=== PATIENT | female | born 2000 | race Two or more races ===

== ENCOUNTER 2021-10-20 14:24 | Emergency (ER) | payer OTHER ==
[2021-10-20 14:52] VITALS: BMI 29.2
[2021-10-20] MEDS ORDERED: LACTATED RINGERS SOLUTION 1000 ML INFUS.BAG IV ONE (15:12)
[2021-10-20 15:47] LABS: EPI CELLS 17 /uL (0-25.1); HYALINE CASTS 0 /uL (0-3.1); URINE APPEARANCE CLEAR; URINE BACTERIA 114 /uL (0-1359); URINE BILIRUBIN NEGATIVE (NEGATIVE); URINE COLOR YELLOW; URINE GLUCOSE (UA) NEGATIVE (NEGATIVE); URINE KETONE NEGATIVE (NEGATIVE); URINE LEUK ESTERASE NEGATIVE (NEGATIVE); URINE NITRITE NEGATIVE (NEGATIVE); URINE PROTEIN NEGATIVE (NEGATIVE); URINE RBC 7 /uL (0-23.9); URINE UROBILINOGEN 0.2 mg/dL (0.2-1.0); URINE WBC 12 /uL (0-25.8)
[2021-10-20 16:16] LABS: BASO % 0.4 % (0-2.0); CHLORIDE 104 mmol/L (98-107); EOS % 1.7 % (0-4.5); HEMATOCRIT 40.4 % (32.4-45.2); HEMOGLOBIN 13.2 GM/dL (10.7-15.3); LYMPH % 17.8 % (8-40); MCH 25.3 pg (25.7-33.7); MCHC 32.5 g/dl (32.0-36.0); MEAN CELL VOLUME 77.6 fl (80-96); MEAN PLT VOLUME 7.5 fl (7.5-11.1); NEUT % 72.1 % (42.8-82.8); PLATELET COUNT 345 10^3/uL (134-434); RBC 5.21 M/mm3 (3.60-5.2); RDW 13.6 % (11.6-15.6); SODIUM 137 mmol/L (136-145); WHITE BLOOD COUNT 6.6 K/mm3 (4.0-10.0)
[2021-10-20 16:20] LABS: ALBUMIN 3.8 g/dl (3.4-5.0); CALCIUM 9.4 mg/dL (8.5-10.1)
[2021-10-20 16:21] LABS: ANION GAP 9 MMOL/L (8-16); BLOOD UREA NITROGEN 9.4 mg/dL (7-18); CO2 24 mmol/L (21-32); GLUCOSE,RANDOM 136 mg/dL (74-106)
[2021-10-20 16:23] LABS: CREATININE 0.7 mg/dL (0.55-1.3); SGOT/AST 25 U/L (15-37); SGPT/ALT 33 U/L (13-61)
[2021-10-20 16:24] LABS: BILIRUBIN,TOTAL 0.4 mg/dL (0.2-1)
[2021-10-20 16:25] LABS: METHADONE, UR NEGATIVE (NEGATIVE); URINE BENZODIAZEPINES NEGATIVE (NEGATIVE)
[2021-10-20 16:25] LABS: TOT PROT 7.2 g/dl (6.4-8.2)
[2021-10-20 16:26] LABS: COCAINE, UR NEGATIVE (NEGATIVE); PHENCYCLIDINE,URINE NEGATIVE (NEGATIVE); URINE BARBITURATES NEGATIVE (NEGATIVE)
[2021-10-20 16:28] LABS: ALK PHOS 94 U/L (45-117)
[2021-10-20 16:32] LABS: OPIATES, URI NEGATIVE (NEGATIVE); URINE AMPHETAMINES NEGATIVE (NEGATIVE)
[2021-10-20 19:18] VITALS: BP 112/68; PULSE 86; TEMP 99.3
== END 2021-10-20 18:30 | disposition home or self-care (01) ==
LOC: JER 14:24
DX: R41.82 Altered mental status, unspecified (principal)
CPT/HCPCS: 36415; 70450-TC; 80053; 80307; 81003; 82962; 84439; 84443; 84703; 85025; 87086; 93005; 93010; 99285-25

== ENCOUNTER 2022-01-17 14:15 | Emergency (ER) | payer OTHER ==
[2022-01-17 14:36] VITALS: BP 99/63; PULSE 84; RESP 20; TEMP 98.6; BMI 28.0
== END 2022-01-17 15:51 | disposition home or self-care (01) ==
LOC: JER 14:15
DX: R07.9 Chest pain, unspecified (principal)
CPT/HCPCS: 93005; 93010; 99283-25